=== PATIENT | female | born 1975 | race Caucasian/White ===

== ENCOUNTER 2017-01-13 14:18 | Emergency (ER) | payer OTHER ==
--- NOTE | ~2017-01-13 | CR181 ---
[facility] A Service of [facility] RADIOLOGY TEXT RESULTS PATIENT: MATA LERNER LOCATION: SED : 77 UNIT #: [id number] AGE: [address]: CESAR POLLARD SEX: F ORDER DR: [id number] [place] [id number] E MR#: [id number] Acc #: [id number] NAME: MATA LERNER : 1975 SEX: F STUDY DATE/TIME: UNIT: SED ROOM: STUDY DESCRIPTION: CR Lumbar Spine 2 or 3 Views Attending Physician: Cesar Pollard Ordering Physician: Cesar Pollard Primary Care Physician: [facility] MEDICAL IMAGING REPORT This report is preliminary unless electronic signature is present. EXAM Lumbar spine 01/13/17 at 15:06 INDICATIONS Low back pain chronically for 1.5 years which radiates to the right leg. No trauma. FINDINGS Three views of the lumbar spine are compared with 08/24/2015. There is no fracture or subluxation. There is degenerative disc space narrowing at L3/04, L4-5, L5-S1, not significantly changed. IMPRESSION No fracture or malalignment. Degenerative disc disease is not significantly changed from prior. Dictated by... Vincent Harrington Jr., M.D. THIS IS AN ELECTRONICALLY VERIFIED REPORT Vincent Harrington Jr., M.D. at 01/14/2017 8:37 AM GRETA/yue TD: 01/13/2017 18:06 JOB #: [id number] MEDICAL IMAGING REPORT Page 1 of 1
[~2017-01-13 14:18] MED LIST: ALBUTEROL17 GM INH; AMOXICILLIN PO; AMOXICILLIN500 M1 PO; ATIVAN PO; BACTRIM DS TABL1 TA1 PO; BROMFED DM COU118 ML PO; BUSPAR PO; BUSPAR15 MG PO; CEFTIN500 MG PO; CIPRO PO; DICLOFENAC PO; IBUPROFEN600 MG PO; KEFLEX500 MG PO; ORUDIS75 M1 PO; PREDNISONE PO
[2017-01-13] MEDS ORDERED: BACLOFEN PO (14:21)
[2017-01-13] MEDS ORDERED: BUSPAR PO (14:22)
[2017-01-13] MEDS ORDERED: GABAPENTIN PO (14:22)
[2017-01-13] MEDS ORDERED: ANTI-INFLAMMATORY PO (14:23)
== END 2017-01-13 15:33 | disposition home or self-care (01) ==
LOC: SED 14:18
DX: M54.5 Low back pain (principal); G89.29 Other chronic pain; F41.9 Anxiety disorder, unspecified; F17.210 Nicotine dependence, cigarettes, uncomplicated
CPT/HCPCS: 72100; 96372; 99283; J1885